=== PATIENT | female | born 1995 | race Caucasian/White ===

== ENCOUNTER 2016-07-07 04:15 | Observation (INO) | payer OTHER, BC ==
[2016-07-07] VITALS (14 sets, daily range): BP systolic 86–116; BP diastolic 43–71; PULSE 89–134; RESP 16–22; TEMP 98–100.6; O2SAT 96–100
[~2016-07-07] VITALS: Ht 177.8 cm; Wt 94.9 kg
[~2016-07-07 04:15] MED LIST: IBUP-238 PO; LORT5TAB PO; Z.0.NO CURRENT MEDS
[2016-07-07] MEDS ORDERED: SODIUM CHLOR 0.9% 1000 ML INJ 1,000 ML IV SCH ×3 (04:55→08:06)
[2016-07-07] MEDS ORDERED: ONDANSETRON HCL 4 MG/2 ML VIAL IV PUSH ONE ×2 (05:00→14:15)
[2016-07-07] MEDS ORDERED: SODIUM CHLORIDE 0.9% FLUSH 5 ML FLUSH IVF PRN (05:00)
[2016-07-07 05:31] LABS: AUTOMATED NEUTROPHIL # 11.6 TH/MM3 (1.8-7.7); BASOPHIL # 0.1 TH/MM3 (0-0.2); BASOPHIL % 0.6 % (0.0-2.0); EOSINOPHIL % 0.4 % (0.0-4.0); HEMATOCRIT 43.5 % (35.0-46.0); LYMPH % 4.3 % (9.0-44.0); LYMPHOCYTE # 0.5 TH/MM3 (1.0-4.8); MEAN CORPUSCULAR HEMOGLOBIN 24.4 PG (27.0-34.0); MEAN CORPUSCULAR HGB CONC 32.6 % (32.0-36.0); MONO % 1.3 % (0.0-8.0); NEUT % 93.4 % (16.0-70.0); PLATELET COUNT 483 TH/MM3 (150-450); RED CELL DISTRIBUTION WIDTH 12.6 % (11.6-17.2); WHITE BLOOD COUNT 12.4 TH/MM3 (4.0-11.0)
[2016-07-07 05:31] LABS: BLOOD, URINE LARGE (NEG); GLUCOSE,URINE NEG (NEG); KETONE, URINE NEG (NEG); NITRITE,URINE NEG (NEG); PH, URINE 5.5 (5.0-8.5)
[2016-07-07 05:38] LABS: HEMO FLAGS AUTO DIFF
[2016-07-07 05:40] LABS: CHLORIDE 105 MEQ/L (98-107); POTASSIUM 4.1 MEQ/L (3.5-5.1); SODIUM (NA) 139 MEQ/L (136-145)
[2016-07-07 05:43] LABS: ANION GAP 11 MEQ/L (5-15); BICARBONATE 22.6 MEQ/L (21.0-32.0); BLOOD UREA NITROGEN 11 MG/DL (7-18)
[2016-07-07 05:46] LABS: ALT (GPT) 20 U/L (9-42); AST (GOT) 14 U/L (16-38); GLOMERULAR FILTRATION RATE 90 ML/MIN (>89)
[2016-07-07 05:48] LABS: TOTAL BILIRUBIN ADULT 0.8 MG/DL (0.2-1.0)
[2016-07-07 05:49] LABS: ALKALINE PHOSPHATASE 109 U/L (45-117)
[2016-07-07 05:49] LABS: METHOD OF COLLECTION CLEAN CATCH; MUCUS URINE FEW /lpf (OCC); URINE COLOR YELLOW (YELLW/STRAW)
[2016-07-07 05:50] LABS: RBC, URINE 15-19 /hpf (0-3)
[2016-07-07 05:51] LABS: BACTERIA, URINE MOD /hpf; COMMENT (UR) CULTURE INDICATED; CULTURE IF INDICATED CULTURE INDICATED; WBC, URINE 0-2 /hpf (0-5)
[2016-07-07 05:56] LABS: OVALOCYTES 1+ (NORMAL); PLATELET ESTIMATE SMEAR HIGH (NORMAL); PLATELET MORPHOLOGY NORMAL (NORMAL)
[2016-07-07 05:57] LABS: SCAN/DIFF AUTO DIFF CONFIRMED
--- NOTE | 2016-07-07 05:57 | PD ---
HPI Chief Complaint: GI Complaint Time Seen by Provider: 04:54 Travel History International Travel<30 days: No Contact w/Intl Traveler<30days: No Traveled to known affect area: No History of Present Illness HPI 21 year-old female presents to the emergency department by private transportation the care of family for evaluation of generalized weakness nausea vomiting abdominal pain and diarrhea. Symptoms began Tuesday evening. Patient was concerned she may have eaten bad food. No other family members with the same symptoms. Patient denies any fever but has experienced chills. Patient did take acetaminophen at home prior to arrival for abdominal pain. Patient has no chronic medical conditions and takes no prescription medications other than control pills. Last period just ended and was normal for her denies . No vaginal discharge no vaginal bleeding. PFSH Past Medical History Narrative Medical Asthma immunizations current no tobacco use no alcohol use nursing notes reviewed Asthma: Yes Diminished Hearing: No Immunizations Current: Yes ?: Unknown Social History Alcohol Use: No Tobacco Use: No Substance Use: No Allergies-Medications (Allergen,Severity, Reaction): Coded Allergies: Cefzil (Verified Allergy, Severe, UNKNOWN, 07/07/16) Lactose (Verified Allergy, Severe, ABD PAIN, 07/07/16) Reported Meds & Prescriptions Reported Meds & Active Scripts Active Review of Systems Except as stated in HPI: all other systems reviewed are Neg General / Constitutional: Positive: Chills HENT: No: Congestion Cardiovascular: No: Chest Pain or Discomfort Respiratory: No: Shortness of Breath Gastrointestinal: Positive: Nausea, Vomiting, Diarrhea, Abdominal Pain Genitourinary: Positive: Dysuria, Decreased Urinary Output, No: Flank Pain Musculoskeletal: Positive: Myalgias, Arthralgias Skin: No Rash Neurologic: Positive: Weakness Psychiatric: Positive: Anxiety Hematologic/Lymphatic: No: Lymph Node Enlargement Physical Exam Narrative GENERAL: Well-developed anxious tearful female in no respiratory distress SKIN: Warm and dry. HEAD: Normocephalic. EYES: No scleral icterus. No injection or drainage. NECK: Supple, trachea midline. No JVD or lymphadenopathy. CARDIOVASCULAR: Regular rate and rhythm without murmurs, gallops, or rubs. RESPIRATORY: Breath sounds equal bilaterally. No accessory muscle use. GASTROINTESTINAL: Abdomen soft, generalized tenderness without guarding or rebound, nondistended. MUSCULOSKELETAL: No cyanosis, or edema. BACK: Nontender without obvious deformity. No CVA tenderness. Data Data Last Documented VS Vital Signs Date Time Temp Pulse Resp B/P Pulse Ox O2 Delivery O2 Flow Rate FiO2 07/07/16 07:50 93 16 109/62 100 Room Air 07/07/16 07:30 99.1 Orders Complete Blood Count With Diff (07/07/16 04:55) Comprehensive Metabolic Panel (07/07/16 04:55) Lipase (07/07/16 04:55) Lactic Acid (07/07/16 04:55) Urinalysis - C+S If Indicated (07/07/16 04:55) Iv Access Insert/Monitor (07/07/16 04:55) Ecg Monitoring (07/07/16 04:55) Oximetry (07/07/16 04:55) Sodium Chlor 0.9% 1000 Ml Inj (Ns 1000 M (07/07/16 04:55) Sodium Chloride 0.9% Flush (Ns Flush) (07/07/16 05:00) Ed Urine Pregnancytest Poc (07/07/16 04:55) Ondansetron Inj (Zofran Inj) (07/07/16 05:00) Urine Culture (07/07/16 05:00) Ct Abd/Pel W Iv Contrast(Rout) (07/07/16 ) Sodium Chlor 0.9% 1000 Ml Inj (Ns 1000 M (07/07/16 06:00) Iohexol 350 Inj (Omnipaque 350 Inj) (07/07/16 06:42) Metronidazole 500 Mg Inj (Flagyl 500 Mg (07/07/16 07:15) Levofloxacin (Levaquin) (07/07/16 07:15) Blood Culture (07/07/16 07:03) Sodium Chlor 0.9% 1000 Ml Inj (Ns 1000 M (07/07/16 07:30) Morphine Inj (Morphine Inj) (07/07/16 07:30) Sodium Chlor 0.9% 1000 Ml Inj (Ns 1000 M (07/07/16 07:45) Admit Order (Ed Use Only) (07/07/16 08:00) Labs Laboratory Tests Test 07/07/16 07/07/16 07/07/16 05:00 05:15 05:30 Urine Collection Type CLEAN CATCH Urine Color YELLOW Urine Turbidity SLIGHT Urine pH 5.5 Urine Specific [place] 1.031 Urine Protein TRACE mg/dL Urine Glucose (UA) NEG mg/dL Urine Ketones NEG mg/dL Urine Occult Blood LARGE Urine Nitrite NEG Urine Bilirubin NEG Urine Leukocyte Esterase NEG Urine RBC 15-19 /hpf Urine WBC 0-2 /hpf Urine Squamous Epithelial 6-8 /hpf Cells Urine Bacteria MOD /hpf Urine Mucus FEW /lpf Microscopic Urinalysis Comment CULTURE INDICATED White Blood Count 12.4 TH/MM3 Red Blood Count 5.80 MIL/MM3 Hemoglobin 14.2 GM/DL Hematocrit 43.5 % Mean Corpuscular Volume 75.0 FL Mean Corpuscular Hemoglobin 24.4 PG Mean Corpuscular Hemoglobin 32.6 % Concent Red Cell Distribution Width 12.6 % Platelet Count 483 TH/MM3 Mean Platelet Volume 7.5 FL Neutrophils (%) (Auto) 93.4 % Lymphocytes (%) (Auto) 4.3 % Monocytes (%) (Auto) 1.3 % Eosinophils (%) (Auto) 0.4 % Basophils (%) (Auto) 0.6 % Neutrophils # (Auto) 11.6 TH/MM3 Lymphocytes # (Auto) 0.5 TH/MM3 Monocytes # (Auto) 0.2 TH/MM3 Eosinophils # (Auto) 0.0 TH/MM3 Basophils # (Auto) 0.1 TH/MM3 CBC Comment AUTO DIFF Differential Comment AUTO DIFF CONFIRMED Platelet Estimate HIGH Platelet Morphology Comment NORMAL Ovalocytes 1+ Sodium Level 139 MEQ/L Potassium Level 4.1 MEQ/L Chloride Level 105 MEQ/L Carbon Dioxide Level 22.6 MEQ/L Anion Gap 11 MEQ/L Blood Urea Nitrogen 11 MG/DL Creatinine 0.81 MG/DL Estimat Glomerular Filtration 90 ML/MIN Rate Random Glucose 123 MG/DL Calcium Level 8.7 MG/DL Total Bilirubin 0.8 MG/DL Aspartate Amino Transf 14 U/L (AST/SGOT) Alanine Aminotransferase 20 U/L (ALT/SGPT) Alkaline Phosphatase 109 U/L Total Protein 8.5 GM/DL Albumin 3.7 GM/DL Lipase 149 U/L Lactic Acid Level 1.9 mmol/L [facility] Medical Decision Making Medical Screen Exam Complete: Yes Emergency Medical Condition: Yes Medical Record Reviewed: Yes Interpretation(s) POC hcg: negative lactic acidL 1.9, not elevated CBC & BMP Diagram 07/07/16 05:15 ua: Moderate bacteria culture indicated Differential Diagnosis Gastroenteritis, food poisoning, UTI, appendicitis, , dehydration Narrative Course IV access obtained specimens collected and sent for resulting; patient administered normal saline bolus and Zofran CT abdomen and pelvis reveals no acute abnormality patient continues complaining of periumbilical pain Antibiotics administered after blood culture obtained; lactic acid 1.9 Patient receiving a third liter of normal saline; plan is to admit to [facility] service for sepsis criteria based on heart rate white cell count and source of infection; patient at this time appears to primarily need IV fluid hydration antipyretics most likely has dehydration with volume depletion from vomiting and diarrhea however does have moderate bacteria in her urine will be treated for bacteria/UTI CT abdomen and pelvis reveals no acute source for infection or abdominal pain. Patient has received pain medication but continues to complain of pain which may be secondary to musculoskeletal abdominal wall pain from repetitive vomiting as intensity 2-3/10. No hematemesis no coffee-ground emesis no melena or hematochezia. Low suspicion for GI blood loss. Call placed to [employer] professor medicine service. Care signed over to oncoming MD for patient admission. Sepsis Criteria SIRS Criteria (2 or more): Temp > 100.9 or < 96.8, Heart rate over 90, RR > 20 or PaCO2 < 32, WBC > 38810, < 4000 or > 10% bands Sepsis Criteria (SIRS+source): Infect source susp/known (urine/gastroenteritis) Physician Communication Physician Communication call placed to [facility] service Diagnosis Primary Impression: Abdominal pain Qualified Code: R10.33 - Periumbilical abdominal pain Additional Impressions: Gastroenteritis Dehydration Sepsis Qualified Code: A41.9 - Sepsis, due to unspecified organism UTI (urinary tract infection) Qualified Code: N39.0 - Urinary tract infection without hematuria, site unspecified Admitting Information Admitting Physician Requests: Observation Scripts Promethazine (Phenergan)25 Mg Tab25 Mg PO Q6H PRN (Nausea/Vomiting) #31 TAB Ref 0 Prov:Delia Chandler MD 07/08/16 Yoly Del Toro MD Jul 07, 2016 05:57
[2016-07-07] MEDS ORDERED: SODIUM CHLOR 0.9% 1000 ML INJ 1,000 ML IV ONE ×2 (06:00→07:45)
[2016-07-07] MEDS ORDERED: IOHEXOL 350 MG/ML 10 ML VIAL (for RAD DIAG) IV ONE (06:42)
--- NOTE | 2016-07-07 06:55 | RADHPO ---
EXAM DATE/TIME: 07/07/2016 06:28 [place] COMPARISON: No previous studies available for comparison. INDICATIONS : Abdominal pain. Nausea, vomiting, and diarrhea. IV CONTRAST: 100 cc Omnipaque 350 (iohexol) IV ORAL CONTRAST: No oral contrast ingested. RADIATION DOSE: 17.64 CTDIvol (mGy) MEDICAL HISTORY : None SURGICAL HISTORY : None. ENCOUNTER: Initial ACUITY: 1 day PAIN SCALE: 7/10 LOCATION: Bilateral abdomen. TECHNIQUE: Volumetric scanning of the abdomen and pelvis was performed. Using automated exposure control and ad justment of the mA and/or kV according to patient size, radiation dose was kept as low as reasonably achievable to obtain optimal diagnostic quality images. FINDINGS: LOWER LUNGS: The visualized lower lungs are clear. LIVER: Homogeneous density without lesion. There is no dilation of the biliary tree. No calcified gallston es. SPLEEN: Normal size without lesion. PANCREAS: Within normal limits. KIDNEYS: Normal in size and shape. There is no mass, stone or hydronephrosis. ADRENAL GLANDS: Within normal limits. VASCULAR: There is no aortic aneurysm. BOWEL/MESENTERY: The stomach, small bowel, and colon demonstrate no acute abnormality. There is no free intraperitone al air or fluid. The appendix appears normal. ABDOMINAL WALL: Within normal limits. RETROPERITONEUM: There is no lymphadenopathy. BLADDER: No wall thickening or mass. REPRODUCTIVE: Within normal limits. INGUINAL: There is no lymphadenopathy or hernia. MUSCULOSKELETAL: There is a suspected prominent bone island at the posterior right acetabulum. CONCLUSION: No acute disease. Bon Bruno MD on July 07, 2016 at 6:51 Board Certified Radiologist. This report was verified electronically.
[2016-07-07] MEDS ORDERED: metroNIDAZOLE 500 MG INJ 100 ML IV ONE (07:15)
[2016-07-07] MEDS ORDERED: LEVOFLOXACIN 500 MG TAB PO ONE (07:15)
[2016-07-07] MEDS ORDERED: MORPHINE SULFATE 4 MG/ML INJ IV PUSH ONE (07:30)
[2016-07-07] MEDS ORDERED: SODIUM CHLORIDE 0.9% FLUSH 5 ML FLUSH FLUSH PRN (08:15)
[2016-07-07] MEDS ORDERED: ONDANSETRON HCL 4 MG/2 ML VIAL IVP PRN (08:15)
[2016-07-07] MEDS ORDERED: ACETAMINOPHEN 325 MG TAB PO PRN (08:15)
[2016-07-07] MEDS: SODIUM CHLORIDE 0.9% FLUSH 5 ML FLUSH FLUSH SCH ×2 (09:00→21:19)
--- NOTE | 2016-07-07 11:56 | HHI.HP ---
[facility] No Primary Care Physician Admission Diagnosis Sepsis, dehydration Diagnoses: Chief Complaint: Diarrhea Travel History International Travel<30 Days: No Contact w/Intl Traveler <30 Da: No Traveled to Known Affected Are: No History of Present Illness Patient is a 21-year-old female who was sent to the hospital brought to the hospital by her family with one day history of explosive diarrhea, nausea and vomiting after eating something she usually doesn't eat. She had no fevers or chills. Patient says she normally is in really good health. She does not take any medicines [id number] to relieve her symptoms but did come to the emergency room was found to have elevated white cell count, elevated heart rate and some mild hypotension. She did have CT abdomen pelvis done which on my review is unremarkable for acute intra-abdominal findings. Patient notes she not have any fevers or chills. No one she knew a syncopal and she thought it was "food poisoning". Hair patient has done much better. Nausea and diarrhea is resolved. Patient has requested to advance her diet. Review of Systems Constitutional: DENIES: Diaphoretic episodes, Fatigue, Fever, Weight gain, Weight loss, Chills, Dizziness, Change in appetite, Night Sweats Endocrine: DENIES: Abnorml menstrual pattern, Heat/cold intolerance, Polydipsia , Polyuria, Polyphagia Eyes: DENIES: Blurred vision, Diplopia, Eye inflammation, Eye pain, Vision loss , Photosensitivity, Double Vision Ears, nose, mouth, throat: DENIES: Tinnitus, Hearing loss, Vertigo, Nasal discharge, Oral lesions, Throat pain, Hoarseness, Ear Pain, Running Nose, Epistaxis, Sinus Pain, Toothache, Odynophagia Respiratory: DENIES: Apneas, Cough, Snoring, Wheezing, Hemoptysis, Sputum production, Shortness of breath Cardiovascular: DENIES: Chest pain, Palpitations, Syncope, Dyspnea on Exertion , PND, Lower Extremity Edema, Orthopnea, Claudication Gastrointestinal: COMPLAINS OF: Diarrhea, Nausea, DENIES: Abdominal pain, Black stools, Bloody stools, Constipation, Vomiting, Difficulty Swallowing, Anorexia Musculoskeletal: DENIES: Joint pain, Muscle aches, Stiffness, Joint Swelling, Back pain, Neck pain Integumentary: DENIES: Abnormal pigmentation, Pruritus, Rash, Nail changes, Breast masses, Breast skin changes, Nipple discharge Immunologic/allergic: DENIES: Eczema, Urticaria Neurologic: DENIES: Abnormal gait, Headache, Localized weakness, Paresthesias, Seizures, Speech Problems, Tremor, Poor Balance Psychiatric: COMPLAINS OF: Anxiety, DENIES: Confusion, Mood changes, Depression, Hallucinations, Agitation, Suicidal Ideation, Homicidal Ideation, Delusions Past Family Social History Past Medical History Anxiety/depression Past Surgical History Denies Reported Medications Escitalopram, oral contraceptive pills Allergies: Coded Allergies: Cefzil (Verified Allergy, Severe, UNKNOWN, 07/07/16) Lactose (Verified Allergy, Severe, ABD PAIN, 07/07/16) Active Ordered Medications Reviewed and the medical record Family History No family history of intestinal disorders Social History Lives alone, no tobacco or alcohol dependency Physical Exam Vital Signs Vital Signs Date Time Temp Pulse Resp B/P Pulse Ox O2 Delivery O2 Flow Rate FiO2 07/07/16 09:27 98.6 102 20 110/71 97 07/07/16 09:10 99 16 102/50 99 07/07/16 09:00 16 07/07/16 08:52 98 16 95/51 98 Room Air 07/07/16 07:50 93 16 109/62 100 Room Air 07/07/16 07:30 99.1 93 16 89/43 99 Room Air 07/07/16 07:10 16 07/07/16 06:24 89 16 105/68 99 Room Air 07/07/16 05:55 99.3 92 16 102/64 99 Room Air 07/07/16 05:00 110 16 114/60 128 108/64 86/66 07/07/16 04:47 99.3 07/07/16 04:24 100.3 134 22 103/68 98 Physical Exam GENERAL: This is a well-nourished, well-developed patient, in no apparent distress. SKIN: No rashes, ecchymoses or lesions. Cool and dry. HEAD: Atraumatic. Normocephalic. No temporal or scalp tenderness. EYES: Pupils equal round and reactive. Extraocular motions intact. No scleral icterus. No injection or drainage. ENT: Nose without bleeding, purulent drainage or septal hematoma. Throat without erythema, tonsillar hypertrophy or exudate. Uvula midline. Airway patent. NECK: Trachea midline. No JVD or lymphadenopathy. Supple, nontender, no meningeal signs. CARDIOVASCULAR: Regular rate and rhythm without murmurs, gallops, or rubs. RESPIRATORY: Clear to auscultation. Breath sounds equal bilaterally. No wheezes , rales, or rhonchi. GASTROINTESTINAL: Abdomen soft, non-tender, nondistended. No hepato-splenomegaly , or palpable masses. No guarding. MUSCULOSKELETAL: Extremities without clubbing, cyanosis, or edema. No joint tenderness, effusion, or edema noted. No calf tenderness. Negative Homans sign bilaterally. NEUROLOGICAL: Awake and alert. Cranial nerves II through XII intact. Motor and sensory grossly within normal limits. Five out of 5 muscle strength in all muscle groups. Normal speech. Laboratory Laboratory Tests Test 07/07/16 07/07/16 07/07/16 05:00 05:15 05:30 Urine Collection Type CLEAN CATCH Urine Color YELLOW Urine Turbidity SLIGHT Urine pH 5.5 Urine Specific [place] 1.031 Urine Protein TRACE Urine Glucose (UA) NEG Urine Ketones NEG Urine Occult Blood LARGE Urine Nitrite NEG Urine Bilirubin NEG Urine Leukocyte Esterase NEG Urine RBC 15-19 Urine WBC 0-2 Urine Squamous Epithelial 6-8 Cells Urine Bacteria MOD Urine Mucus FEW Microscopic Urinalysis Comment CULTURE INDICATED White Blood Count 12.4 Red Blood Count 5.80 Hemoglobin 14.2 Hematocrit 43.5 Mean Corpuscular Volume 75.0 Mean Corpuscular Hemoglobin 24.4 Mean Corpuscular Hemoglobin 32.6 Concent Red Cell Distribution Width 12.6 Platelet Count 483 Mean Platelet Volume 7.5 Neutrophils (%) (Auto) 93.4 Lymphocytes (%) (Auto) 4.3 Monocytes (%) (Auto) 1.3 Eosinophils (%) (Auto) 0.4 Basophils (%) (Auto) 0.6 Neutrophils # (Auto) 11.6 Lymphocytes # (Auto) 0.5 Monocytes # (Auto) 0.2 Eosinophils # (Auto) 0.0 Basophils # (Auto) 0.1 CBC Comment AUTO DIFF Differential Comment AUTO DIFF CONFIRMED Platelet Estimate HIGH Platelet Morphology Comment NORMAL Ovalocytes 1+ Sodium Level 139 Potassium Level 4.1 Chloride Level 105 Carbon Dioxide Level 22.6 Anion Gap 11 Blood Urea Nitrogen 11 Creatinine 0.81 Estimat Glomerular Filtration 90 Rate Random Glucose 123 Calcium Level 8.7 Total Bilirubin 0.8 Aspartate Amino Transf 14 (AST/SGOT) Alanine Aminotransferase 20 (ALT/SGPT) Alkaline Phosphatase 109 Total Protein 8.5 Albumin 3.7 Lipase 149 Lactic Acid Level 1.9 Date/Time Procedure Status Source Growth 07/07/16 07:25 Aerobic Blood Culture Received Blood Peripheral Pending 07/07/16 07:25 Anaerobic Blood Culture Received Blood Peripheral Pending 07/07/16 05:00 Urine Culture Received Urine Clean Catch Pending Result Diagram: 07/07/16 0515 07/07/16 0515 Imaging Last Impressions Abdomen/Pelvis CT 07/07/16 0000 Signed Impressions: Service Date/Time: Thursday, July 07, 2016 06:28 - CONCLUSION: No acute disease. Bon Bruno MD Assessment and Plan Problem List: (1) Gastroenteritis ICD Code: K52.9 Status: Acute Plan: Continue IV fluids and supportive care, Pepto-Bismol by mouth. Advance diet. Likely discharge home Code Status full code Discussed Condition With patient. GRACIA Chandler,Delia Vega MD Jul 07, 2016 11:56
[2016-07-07] MEDS ORDERED: BISMUTH SUBSALICYLATE 240 ML BTL PO ONE (12:00)
--- NOTE | 2016-07-07 13:07 | HHI.DCPOC ---
Discharge Care Plan Diagnosis: (1) Gastroenteritis Goals to Promote Your Health * To prevent worsening of your condition and complications * To maintain your health at the optimal level Directions to Meet Your Goals Take your medications as prescribed Follow your dietary instruction Follow activity as directed Keep your appointments as scheduled Take your immunizations and boosters as scheduled If your symptoms worsen call your PCP, if no PCP go to Urgent Care Center or Emergency Room Smoking is Dangerous to Your Health. Avoid second hand smoke Call the 24-hour hour crisis hotline for domestic abuse at Delia Chandler MD Jul 07, 2016 13:07
[2016-07-07] MEDS: PANTOPRAZOLE SODIUM 40 MG VIAL IV PUSH SCH (14:11)
[2016-07-07] MEDS ORDERED: LOPERAMIDE HCL 2 MG CAP PO ONE (14:15)
[2016-07-07] MEDS ORDERED: LOPERAMIDE HCL 2 MG CAP PO PRN (14:15)
[2016-07-07] MEDS: SODIUM CHLOR 0.9% 1000 ML INJ 1,000 ML IV SCH ×2 (14:20→21:19)
[2016-07-08] VITALS: BP 97/57; PULSE 86; RESP 18; TEMP 98.6; O2SAT 98
[2016-07-08 04:00] VITALS: BP 98/63; PULSE 79; RESP 20; TEMP 97.8; O2SAT 98
[2016-07-08] MEDS: SODIUM CHLOR 0.9% 1000 ML INJ 1,000 ML IV SCH ×2 (05:57→14:44)
[2016-07-08 07:20] LABS: AUTOMATED NEUTROPHIL # 1.7 TH/MM3 (1.8-7.7); BASOPHIL % 0.6 % (0.0-2.0); EOSINOPHIL % 1.1 % (0.0-4.0); HEMATOCRIT 36.1 % (35.0-46.0); HEMO FLAGS DIFF FINAL; LYMPH % 47.9 % (9.0-44.0); LYMPHOCYTE # 1.9 TH/MM3 (1.0-4.8); MEAN CORPUSCULAR HEMOGLOBIN 25.3 PG (27.0-34.0); MEAN CORPUSCULAR HGB CONC 33.3 % (32.0-36.0); MONO % 8.1 % (0.0-8.0); NEUT % 42.3 % (16.0-70.0); PLATELET COUNT 306 TH/MM3 (150-450); RED BLOOD COUNT 4.75 MIL/MM3 (4.00-5.30); RED CELL DISTRIBUTION WIDTH 13.3 % (11.6-17.2); WHITE BLOOD COUNT 3.9 TH/MM3 (4.0-11.0)
[2016-07-08 07:27] LABS: POTASSIUM 3.5 MEQ/L (3.5-5.1)
[2016-07-08 07:30] LABS: BICARBONATE 25.2 MEQ/L (21.0-32.0)
[2016-07-08 08:00] VITALS: BP 101/66; PULSE 79; RESP 19; TEMP 97.7; O2SAT 99
[2016-07-08] MEDS: SODIUM CHLORIDE 0.9% FLUSH 5 ML FLUSH FLUSH SCH (09:00)
--- NOTE | 2016-07-08 10:45 | HHI.PR ---
Subjective Remarks Patient seen and evaluated today in follow-up for enteritis which appears to be slowly improving. Leukocytosis is improved. Low-grade temperature overnight. Patient able to tolerate a little bit of food. Tolerating fluids. Discussed with patient, mom and Crystal RN Objective Vitals Vital Signs Date Time Temp Pulse Resp B/P Pulse Ox O2 Delivery O2 Flow Rate FiO2 07/08/16 08:00 97.7 79 19 101/66 99 07/08/16 04:00 97.8 79 20 98/63 98 07/08/16 00:00 98.6 86 18 97/57 98 07/07/16 20:30 104/58 07/07/16 20:00 100.6 96 20 87/62 98 07/07/16 16:00 99.3 114 20 116/68 97 07/07/16 12:00 98.0 103 20 114/62 96 I/O 07/07/16 07/07/16 07/07/16 07/08/16 07/08/16 07/08/16 07:00 15:00 23:00 07:00 15:00 23:00 Intake Total 1000 ml 2000 ml 1193 ml 1395 ml Balance 1000 ml 2000 ml 1193 ml 1395 ml Intake Oral 240 ml 240 ml IV Total 1000 ml 2000 ml 953 ml 1155 ml # Voids 3 2 # Bowel Movements 1 0 Result Diagram: 07/08/1670407/08/16 07 Objective Remarks GENERAL: This is a well-nourished, well-developed patient, in no apparent distress. CARDIOVASCULAR: Regular rate and rhythm without murmurs, gallops, or rubs. RESPIRATORY: Clear to auscultation. Breath sounds equal bilaterally. No wheezes , rales, or rhonchi. GASTROINTESTINAL: Abdomen soft, non-tender, nondistended. Normal active bowel sounds MUSCULOSKELETAL: Extremities without clubbing, cyanosis, or edema. NEURO: Alert & Oriented x4 to person, place, time, situation. Moves all ext x4 A/P Problem List: (1) Gastroenteritis ICD Code: K52.9 Status: Acute Plan: She meets criteria for sepsis with hypotension, tachycardia and fever Continue IV fluids and supportive care, Pepto-Bismol by mouth. Advance diet. Likely discharge home in a.m. Discharge Planning dc in am Physician Certification 2 Midnight Certification Type: Admission for Inpatient Services Order for Inpatient Services The services are ordered in accordance with Medicare regulations or non- Medicare payer requirements, as applicable. In the case of services not specified as inpatient-only, they are appropriately provided as inpatient services in accordance with the 2-midnight benchmark. Estimated LOS (days): 2 2 days is the estimated time the patient will need to remain in the hospital, assuming treatment plan goals are met and no additional complications. Post-Hospital Plan: Home Delia Chandler MD Jul 08, 2016 10:45
[2016-07-08 12:00] VITALS: BP 105/72; PULSE 81; RESP 18; TEMP 98.1; O2SAT 96
[2016-07-08] MEDS: PANTOPRAZOLE SODIUM 40 MG VIAL IV PUSH SCH (14:42)
[2016-07-08] MEDS ORDERED: PROM25TA5 PO (15:51)
[2016-07-08 17:15] VITALS: BP 105/77; PULSE 88; RESP 18; TEMP 98; O2SAT 95
--- NOTE | 2016-07-15 21:22 | PD ---
Physical Exam Narrative Received sign out from Dr. Del Toro to discuss admission with hospitalist when they call back. 21yo F with vomiting and diarrhea presenting with tachycardia and fever. Pt's presentation meets SIRS criteria and has been given 3 liters of NS IVF from previous team. Antibiotics given by previous team. Pt with leukocytosis and moderate bacteria in urine. Discussed with Dr. Chandler and accepted to her service. Data Data Orders Complete Blood Count With Diff (07/07/16 04:55) Comprehensive Metabolic Panel (07/07/16 04:55) Lipase (07/07/16 04:55) Lactic Acid (07/07/16 04:55) Urinalysis - C+S If Indicated (07/07/16 04:55) Iv Access Insert/Monitor (07/07/16 04:55) Ecg Monitoring (07/07/16 04:55) Oximetry (07/07/16 04:55) Sodium Chlor 0.9% 1000 Ml Inj (Ns 1000 M (07/07/16 04:55) Sodium Chloride 0.9% Flush (Ns Flush) (07/07/16 05:00) Ed Urine Pregnancytest Poc (07/07/16 04:55) Ondansetron Inj (Zofran Inj) (07/07/16 05:00) Urine Culture (07/07/16 05:00) Ct Abd/Pel W Iv Contrast(Rout) (07/07/16 ) Sodium Chlor 0.9% 1000 Ml Inj (Ns 1000 M (07/07/16 06:00) Iohexol 350 Inj (Omnipaque 350 Inj) (07/07/16 06:42) Metronidazole 500 Mg Inj (Flagyl 500 Mg (07/07/16 07:15) Levofloxacin (Levaquin) (07/07/16 07:15) Blood Culture (07/07/16 07:03) Sodium Chlor 0.9% 1000 Ml Inj (Ns 1000 M (07/07/16 07:30) Morphine Inj (Morphine Inj) (07/07/16 07:30) Sodium Chlor 0.9% 1000 Ml Inj (Ns 1000 M (07/07/16 07:45) Admit Order (Ed Use Only) (07/07/16 08:00) MDM Supervised Visit with PITA: No Diagnosis Primary Impression: Abdominal pain Qualified Code: R10.33 - Periumbilical abdominal pain Additional Impressions: Gastroenteritis Sepsis Qualified Code: A41.9 - Sepsis, due to unspecified organism UTI (urinary tract infection) Qualified Code: N39.0 - Urinary tract infection without hematuria, site unspecified Dehydration Admitting Information Admitting Physician Requests: Observation Patient Instructions: Promethazine (By mouth), Dehydration (DC), Dehydration ( GEN), Urinary Tract Infection in Women (DC), Sepsis (GEN), Acute Abdominal Pain (DC) Scripts Promethazine (Phenergan)25 Mg Tab25 Mg PO Q6H PRN (Nausea/Vomiting) #31 TAB Ref 0 Prov:Delia Chandler MD 07/08/16 Jemima Law DO Jul 15, 2016 21:22
== END 2016-07-08 19:11 | disposition home or self-care (01) ==
LOC: PHED 04:15 → PHEDA 08:01 → PH3A 09:16
PROVIDERS: ADMIT Hospitalist; ATTEND Hospitalist
DX: K52.9 Noninfective gastroenteritis and colitis, unspecified (principal); R11.2 Nausea with vomiting, unspecified; R10.9 Unspecified abdominal pain; R19.7 Diarrhea, unspecified; J45.909 Unspecified asthma, uncomplicated; E86.0 Dehydration; N39.0 Urinary tract infection, site not specified; A41.9 Sepsis, unspecified organism; I95.9 Hypotension, unspecified
CPT/HCPCS: 74177; 80048; 80053; 81001; 83605; 83690; 84703; 85025; 87040; 87086; 87804; 96361; 96374; 99285; C9113; G0378; J2405; J7030; Q9967